=== PATIENT | female | born 1960 ===

== ENCOUNTER 2016-12-12 07:24 | Day surgery (SDC) | payer OTHER ==
[~2016-12-12 07:24] MED LIST: LIDOCAINE HCL 1% MPF SOL ONE; PROPOFOL 500 MG/50 ML EMU IV ONE
[2016-12-12 09:07] VITALS: RESP 18
[2016-12-12 09:24] VITALS: BP 141/65; PULSE 51; TEMP 97.6; O2SAT 100
== END 2016-12-12 09:45 | disposition home health service (06) ==
LOC: SURG 07:24
PROVIDERS: ATTEND Surgery
DX: Z12.11 Encounter for screening for malignant neoplasm of colon (principal); Z86.010 Personal history of colon polyps; K57.30 Diverticulosis of large intestine without perforation or abscess without bleeding; D12.5 Benign neoplasm of sigmoid colon; E11.9 Type 2 diabetes mellitus without complications
CPT/HCPCS: 45381; 45385; 82962; 99001; J2001; J2704